=== PATIENT | male | born 1945 | race American Indian/Alaskan Native ===

== ENCOUNTER 2016-10-25 10:22 | Outpatient (CLI) | payer MEDICARE ==
--- NOTE | 2016-10-26 09:19 | RAD ---
RIGHT LEG TWO VIEWS 10/25/16 No fracture or opaque foreign body was seen. The bones appear normal. no metallic densities were see n in the soft tissues. IMPRESSION: No acute finding. POS: HOME
== END 2016-10-25 10:23 | disposition home or self-care (01) ==
LOC: BURRAD 10:22
PROVIDERS: ATTEND Family Medicine
DX: S80.851A Superficial foreign body, right lower leg, initial encounter (principal)

== ENCOUNTER 2017-05-15 07:41 | Emergency (ER) | payer MEDICARE ==
--- NOTE | 2017-05-15 09:18 | RAD ---
RIGHT SHOULDER 3 VIEWS: Date: 05/15/17 PROVIDED CLINICAL HISTORY: Right shoulder pain status post injury. FINDINGS: There is a transversely oriented fracture of the proximal humeral metaphyseal region with fracture fr agment overriding and displacement. The glenohumeral relationship appears normal. Visualized right manolo ng field appears clear. Acromioclavicular joint osteoarthrosis is demonstrated. IMPRESSION: Right proximal humeral metaphyseal region fracture. POS: [email or web address]
== END 2017-05-15 08:33 | disposition home or self-care (01) ==
LOC: BURERS 07:41
DX: S42.201A Unspecified fracture of upper end of right humerus, initial encounter for closed fracture (principal); F17.210 Nicotine dependence, cigarettes, uncomplicated; W10.9XXA Fall (on) (from) unspecified stairs and steps, initial encounter; Y93.01 Activity, walking, marching and hiking
CPT/HCPCS: 96372; J1170